=== PATIENT | male | born 1940 | race Caucasian/White ===

== ENCOUNTER 2018-04-06 14:04 | Outpatient (CLI) | payer MEDICARE, BC, SELFPAY ==
[2018-04-06] VITALS (12 sets, daily range): BP systolic 131–162; BP diastolic 49–89; PULSE 67–74; RESP 18; TEMP 36.1; O2SAT 98–100
--- NOTE | 2018-04-06 14:08 | DI.RAD.S_ITS ---
PROCEDURE: PAIN L INTERLAMINAR/CAUDAL INJ INDICATIONS: HERNIATED DISK FINDINGS: Fluoroscopic spot filming was performed to verify placement of spinal needles at the L3-4 level(s), as labeled on the films. Appropriate location(s) of the needle tip(s) was confirmed by injection of iodinated contrast. IMPRESSION: Image documentation of needle injection at the left L3-4 level. Dictated by: Rahul Rao M.D. on 04/06/2018 at 16:18 Approved by: Rahul Rao M.D. on 04/06/2018 at 16:19
--- NOTE | 2018-04-06 14:17 | P.PCN_ITS ---
Procedures Date/Time Date of procedure: 04/06/18 Time of procedure: 14:15 General Procedure description: POST OP DIAGNOSIS 1. HNP WITH RADICULAR FEATURES, 2. MULTILEVEL CENTRAL STENOSIS, PROCEDURES 1. FLUORSCOPICALLY GUIDED CONTRAST CONTROLLED INTERLAMINAR EPIDURAL STEROID INJECTION - L3/4 PHYSICIAN: DO DANIEL Ng Arnaldo is referred by Dr. Jaramillo for treatment of HNP Bilateral LE symptoms. FINDINGS Multilevel Central Spinal Stenosis with Nerve Root Compression DESCRIPTION OF PROCEDURE Fluoroscopically guided, contrast-controlled L3/4 translaminar epidural steroid injection. Following denial of allergy and review of potential side effects and complications, including, but not necessarily limited to, infection, allergic reaction, local tissue breakdown, temporary as well as permanent nerve injury, paralysis, stroke and possible , the patient indicated that the patient understood and agreed to proceed. An informed consent document was signed by the patient, witnessed by a nurse, and placed in the patient's chart. Additionally, other treatment options including modalities, medications, and physical therapy were reviewed with the patient. Per the patient request, IV conscious sedation was administered via 3mg of Versed to patient comfort. The patient's vital signs were monitored throughout the procedure by both the nurse and the physician without significant fluctuation. The patient remained conversant throughout the procedure. In the prone position, following sterile prep and drape of the lumbar region, the L3/4 translaminar space was identified fluoroscopically. The skin was anesthetized via a 25-gauge, 1.5-inch needle with 1% lidocaine solution. At this point, a 22-gauge short bevel spinal needle was atraumatically introduced and advanced under fluoroscopic guidance into the region of the L3/4 translaminar space. Depth was confirmed on lateral view. Radiological data, including multiple fluoroscopic views of the lumbar spine, reveal a spinal needle at the L3/4 translaminar space. Lateral views then show placement of the needle in the epidural space. Subsequent views show contrast material flowing superiorly and inferiorly in the epidural space. No vascular or intrathecal uptake is observed. At this point, using loss of resistance technique with saline and air, the epidural space was entered. This was confirmed following negative aspiration with injection of approximately 1.5 cc of Isovue 200, showing excellent epidural flow without vascular or intrathecal uptake. At this point, 1 cc of 1 % lidocaine solution combined with 3 cc or 20 mg of dexamethasone and 80mg Depo medrol was injected without incident. The patient was then transferred to the recovery area where they were observed for an appropriate period of time after the injection. The patient reported a VAS score of 6 prior to the procedure and a post-procedure VAS of 0. Total Fluoroscopy Time: 11.8 seconds Total Conscious Sedation Time: 24min POST OP INSTRUCTIONS The patient was provided a Pain Log to continue to record their response to the target-specific procedure prior to follow-up visit with their referring physician. Additionally, specific post-injection care instructions and a contact number to our office were provided if concerns arise regarding possible complications associated with the procedure are suspected. Sreedhar Cabrera DO
[2018-04-06] MEDS: MIDAZOLAM 5 MG/5 ML VIAL IV (14:40)
[2018-04-06] MEDS: IOPAMIDOL 15 ML VIAL 3 ML INJ (14:50)
[2018-04-06] MEDS: BUPIVACAINE 0.25% (PF) 30 ML VIAL INJ (14:50)
[2018-04-06] MEDS: methylPREDNISolone acetate 80 MG/ML VIAL INJ (14:50)
[2018-04-06] MEDS: DEXAMETHASONE 10 MG/ML VIAL 20 MG INJ (14:50)
== END 2018-04-06 16:03 ==
LOC: RAD 14:07
PROVIDERS: Visit Provider Physical Medicine & Rehabilitation
DX: M51.26 Other intervertebral disc displacement, lumbar region (principal); M48.062 Spinal stenosis, lumbar region with neurogenic claudication
CPT/HCPCS: 62323; 99152; J1040; J1100; J2250

== ENCOUNTER 2018-12-27 08:27 | Day surgery (SDC) | payer MEDICARE, BC, SELFPAY ==
[2018-12-21 14:56] VITALS: BMI 34.5
[2018-12-27] VITALS (12 sets, daily range): BP systolic 86–198; BP diastolic 23–87; PULSE 51–63; RESP 15–17; TEMP 36.2–36.4; O2SAT 88–100; BMI 34.5
--- NOTE | 2018-12-27 | DI.RAD.S_ITS ---
PROCEDURE: XR LUMBAR SPINE 1V INDICATIONS: LAMINECTOMY TECHNIQUE: Single views of the lumbar spine were acquired. COMPARISON: None. FINDINGS: Single spot fluoroscopic intraoperative view demonstrates a surgical probe in the posterior paraspinal soft tissues with the tip projecting at the level of the L3-L4 disc space. Dictated by: Phillip Egan M.D. on 12/27/2018 at 17:21 Approved by: Phillip Egan M.D. on 12/27/2018 at 17:23
[2018-12-27] MEDS: DEXTROSE 5%-0.9% NS 500 ML 21 ML IV (12:00)
--- NOTE | 2018-12-27 13:04 | SUR.PREOP ---
pt to opd this morning for surgery, had a chocolate at 0600 so surgery delayed , pt concerned about blood sugar, blood sugar at 0935 was 83, per anesthesia check every hour, pt to waiting room, blood sugar at 1030 was 81, at 1140 was 72, pt brought back to opd , iv started and d5 and 0.[address] de la cruz , blood sugar 65 at 1210,at 1310 blood sugar 87, pt feeling good, family at side, waiting for surgery
--- NOTE | 2018-12-27 14:20 | PM.PREOP ---
Pre-operative Note Interval Note History & Physical reviewed/Exam performed by Physician: Yes Changes to H&P: No
[2018-12-27] MEDS: CEFAZOLIN 2 GM/100 ML FROZ.PIGGY IV (15:01)
[2018-12-27] MEDS: LACTATED RINGERS 1,000 ML 42 ML IV (15:20)
--- NOTE | 2018-12-27 15:32 | SUR.OPER ---
Prone on spine table, head in foam head support, padded chest and pelvic supports, gel pad at knees, lower legs supported by pillows; nipples, genitalia and toes free of pressure, arms secured on foam padded arm boards at <90 degrees abduction. Tape over blanket at thigh secured to table.
[2018-12-27] MEDS: SODIUM CHLORIDE 0.9% 1,000 ML, GENTAMICIN 80 MG IRR (15:46)
[2018-12-27] MEDS: VANCOMYCIN 1,000 MG VIAL 1000 MG TOP (15:46)
[2018-12-27] MEDS: BUPIVACAINE 0.25% (PF) 8 ML, fentaNYL 100 MCG INJ (15:48)
--- NOTE | 2018-12-27 16:33 | PM.OP.1 ---
Operative Date/Time/Diagnoses Date of procedure: 12/27/18 Time of procedure: 16:33 Pre-op diagnosis: Lumbar stenosis with radiculopathy Lumbar disc herniation Post-op diagnosis: same Procedure & Clinicians Procedure: L3-4 laminectomy and diskectomy Use of microscope Placement of epidural catheter Same procedure as scheduled: Yes Indications: [age] year old male with intractable pain and weakness from stenosis and a disc herniation at L3-4. They had failed conservative management and requested operative intervention. Risks and benefits of surgery were discussed and appropriate consents were obtained. Surgeon: Brice Betts Varnish Thinner: Sheyla Brown Anesthesia Type: General Operative Notes Findings: None Closure Type: primary Specimen(s): none sent Estimated Blood Loss (mL): 10 Procedure in detail: Patient was brought to the operating room and intubated on the table. They were rolled over on the well-padded prone position on the Sam table. A time-out was performed. Preoperative antibiotics were given. The back was prepped and draped in standard sterile fashion. Using fluoroscopy for localization, a 3 cm incision was made in the midline. We used Bovie to dissect through the lumbodorsal fascia and then subperiosteally dissect the paraspinal muscles off the right side. A marker was placed and x-ray was taken to confirm positioning. We then brought in the microscope. A right-sided laminectomy was performed at L3-4. We carefully depressed the dura and reached across the midline to decompress the opposite side. The neural foramen were cleared out. We then carefully retracted the dura up and over the disc until the disc was exposed at L3-4. This was cleared with bipolar and then a scalpel used to perform an annulotomy. We used pituitary to perform a diskectomy until the posterior protrusion was removed and the disc was now flat. At the end, we could reach with the ball probe cephalad and caudally across the midline and to the foramen and everything was opened. The wound was irrigated. An epidural catheter was prepared with 8 mL of 0.25% Marcaine and 100 mcg of fentanyl. The dura was carefully depressed and the catheter was advanced 6 cm cephalad underneath remaining lamina without resistance. The fascia was then closed in layers with Maxon. The epidural catheter was injected without complications. Vancomycin powder was placed in the wound. The superficial was closed with Maxon and the skin was closed with ezequiel, all for his suture reactions in the past. Sterile dressing was placed. Patient was rolled over extubated brought to recovery room with no complications. Complications: none Condition: stable Disposition: PACU Plan for aftercare: Outpt. Limited BLT
[2018-12-27] MEDS: OXYCODONE/ACETAMINOPHEN 5/325 TABLET 1 TAB PO (17:34)
--- NOTE | 2018-12-27 17:44 | SUR.PHASEII ---
IV d/c'd at this time, pt. tolerated catheter tip intact.
--- NOTE | 2018-12-27 18:18 | SUR.PHASEII ---
1752; Pt was sitting on the edge of bed, pants, sock and shoes on, requested pt. to marketing proposal coordinator effort to pull up pants; pt. had difficulty straightening legs, sat back down on EOB, again pt. went to stand pt. did better job however pt. basically went blank eyes shut still in squat position, did not respond to this authors calling his name, this author called out for other RN to come to bedside, assisted pt. back down to supine position. Pt. then conversant, pt. covered with blanket, family at bedside. Will continue to monitor pt. until further awake.
--- NOTE | 2018-12-27 18:24 | SUR.PHASEII ---
1814, pt. feeling much better, vital signs improved, pt. requesting to get up and finish dressing. Family remained at bedside assisting pt. with upper clothes; no further issues of weakness, non responsive. Pt. assisted out of hospital via w/c with family. Family and pt. comfortable with leaving at this time.
== END 2018-12-27 18:28 | disposition home or self-care (01) ==
PROVIDERS: PCP Family Medicine; Visit Provider Orthopaedic Surgery
PROC: (CPT 63047; principal; 2018-12-27 10:15)
DX: M48.062 Spinal stenosis, lumbar region with neurogenic claudication (principal); M46.96 Unspecified inflammatory spondylopathy, lumbar region; M51.16 Intervertebral disc disorders with radiculopathy, lumbar region; E11.9 Type 2 diabetes mellitus without complications; I25.10 Atherosclerotic heart disease of native coronary artery without angina pectoris; Z79.4 Long term (current) use of insulin
CPT/HCPCS: 63047; 72020; 76000; J0690; J2405; J2704; J3010

== ENCOUNTER → 2021-08-14 13:24 | Outpatient (CLI) | payer MEDICARE, BC, SELFPAY ==
--- NOTE | 2021-08-14 | DI.MRI.S_ITS ---
PROCEDURE: MR LUMBAR SPINE WO CON INDICATIONS: Low back pain TECHNIQUE: Noncontrast sagittal T1 spin echo and T2 fast echo, sagittal STIR, axial T1 and T2 fast spin echo through the lumbar spine. In cases with scoliosis, additional coronal T2 fast spin echo may be performed. COMPARISON: [facility], CR, XR THORACOLUMBAR SPINE 2 VIEWS, 07/31/2021, 14:54. [facility], CR, XR LUMBAR SPINE WITH OBLIQUES, 09/08/2017, 10:04. [facility], MR, MR LUMBAR SPINE WITHOUT CONTRAST, 08/21/2017, 9:00. FINDINGS: Image quality: Excellent. Alignment and Curvature: There is normal bony alignment. Bone Marrow: Marrow is of normal overall signal. No acute vertebral body compression fractures. Spinal Cord: Conus medullaris terminates at the L1 level. Visualized cord demonstrates normal signal and size. Paraspinous Soft Tissues: No paravertebral masses. T12-L1: Loss of disc signal. No central stenosis. No neural foraminal narrowing. No neural compression L1-L2: Loss of disc signal. Mild, diffuse disc bulge. No central stenosis. Mild bilateral neural foraminal narrowing. No neural compression. L2-L3: Loss of disc signal. Mild, diffuse disc bulge. Mild bilateral facet hypertrophy. Mild narrowing of the central canal. Mild to moderate bilateral neural foraminal narrowing. No neural compression. Fissure noted in the posterior annulus. L3-L4: Loss of disc signal. Large right central disc extrusion. Moderate bilateral facet hypertrophy. Severe narrowing of the central canal with compression of the nerve roots of the cauda equina. Moderate bilateral neural foraminal narrowing. L4-L5: Loss of disc signal. Mild, diffuse disc bulge. Moderate bilateral facet hypertrophy. Mild ligamentum flavum hypertrophy. Moderate narrowing of the central canal. Mild to moderate bilateral neural foraminal narrowing. No neural compression. L5-S1: Loss of disc signal. Mild, diffuse disc bulge. [id number]-[id number] bilateral facet hypertrophy. No central stenosis. Mild bilateral neural foraminal narrowing. No neural compression. Fissure noted in the posterior annulus. IMPRESSION: 1. Large right central L3-L4 disc extrusion which causes severe central canal narrowing and compression of the traversing nerve roots of the cauda equina. 2. Multilevel degenerative disc disease. 3. Multilevel facet arthropathy. 4. Severe L3-L4 central canal narrowing predominantly related to disc extrusion. 5. No severe neural foraminal narrowing. 6. L2-L3 and L5-S1 disc annulus fissures. Dictated by: Jacqueline Gregory MD, PhD on 08/14/2021 at 16:22 Approved by: Jacqueline Gregory MD, PhD on 08/14/2021 at 16:29
== END ==
PROVIDERS: PCP Family Medicine; Referring Provider Physical Medicine & Rehabilitation; Visit Provider Physical Medicine & Rehabilitation
DX: M54.50 Low back pain, unspecified (principal); M48.061 Spinal stenosis, lumbar region without neurogenic claudication; M51.36 Other intervertebral disc degeneration, lumbar region; M47.896 Other spondylosis, lumbar region; M51.37 Other intervertebral disc degeneration, lumbosacral region; M48.07 Spinal stenosis, lumbosacral region
CPT/HCPCS: 72148

== ENCOUNTER → 2022-05-07 09:25 | Outpatient (CLI) | payer MEDICARE, BC, SELFPAY ==
[2022-05-07 10:16] LABS: Add Manual Diff / Slide Review NO; Basophils Absolute Auto 100 /uL (0-100); Basophils Percent Auto 0.9 % (0-2); Eosinophils Absolute Auto 600 /uL (0-450); Eosinophils Percent Auto 6.3 % (2-4); Hematocrit 43.4 % (41-53); Lymphocytes Absolute Auto 2400 /uL (1100-4500); Lymphocytes Percent Auto 24.6 % (25-40); Mean Corpuscular HGB Conc 34.5 % (30-36); Mean Corpuscular Hemoglobin 32.6 PG (26-34); Mean Corpuscular Volume 94.5 fL (80-100); Monocytes Absolute Auto 700 /uL (0-900); Monocytes Percent Auto 7.3 % (3-14); Neutrophils Absolute Auto 6100 /uL (1500-7000); Neutrophils Percent Auto 60.9 % (50-75); Platelet Count 151 X10^3/uL (150-400); Red Cell Distribution Width 13.8 % (11.6-14.8); White Blood Cell Count 9.9 X10^3/uL (4.5-11.0)
[2022-05-07 10:48] LABS: BUN Creatinine Ratio 14.5 (6-22); Blood Urea Nitrogen 22 mg/dL (9-20); Calcium 8.8 mg/dL (8.4-10.2); Carbon Dioxide 27 mmol/L (22-32); Chloride 102 mmol/L (98-107); Estimated Glomerular Filt Rate 46 mL/min (>60); Glucose 112 mg/dL (80-110); HEMOLYSIS < 15 (0-50); Potassium 4.4 mmol/L (3.4-5.1); Sodium 139 mmol/L (137-145)
== END ==
PROVIDERS: PCP Family Medicine; Referring Provider Orthopaedic Surgery Orthopaedic Surgery of the Spine; Visit Provider Orthopaedic Surgery Orthopaedic Surgery of the Spine
DX: Z01.812 Encounter for preprocedural laboratory examination (principal)
CPT/HCPCS: 36415; 80048; 85025

== ENCOUNTER → 2022-05-15 10:27 | Outpatient (CLI) | payer MEDICARE, BC, SELFPAY ==
[2022-05-15 11:04] LABS: COVID19 -Nasal RAPID Negative (Negative)
== END ==
PROVIDERS: PCP Family Medicine; Referring Provider Orthopaedic Surgery Orthopaedic Surgery of the Spine; Visit Provider Orthopaedic Surgery Orthopaedic Surgery of the Spine
DX: Z20.822 Contact with and (suspected) exposure to COVID-19 (principal)
CPT/HCPCS: 87635; C9803

== ENCOUNTER 2022-05-18 10:14 | Inpatient (IN) | payer MEDICARE, BC, SELFPAY ==
[2022-05-13 11:53] VITALS: BMI 34.4
[2022-05-18] VITALS (14 sets, daily range): BP systolic 115–202; BP diastolic 59–90; PULSE 55–81; RESP 16–24; TEMP 35.8–36.3; O2SAT 95–100; BMI 34.4
--- NOTE | 2022-05-18 | DI.RAD.S_ITS ---
PROCEDURE: XR LUMBAR SPINE 2-3V INDICATIONS: L3-4 TLIF TECHNIQUE: 2 views of the lumbar spine were acquired. COMPARISON: None. FINDINGS: Nondiagnostic intraoperative fluoroscopic views of the lumbar spine demonstrate changes of L3-L4 posterior fixation and laminectomy by means bilateral rods and pedicle screws with interbody device. Hardware appears to be in appropriate position with no evidence of periprosthetic fracture or other acute complicating hardware feature. IMPRESSION: Nondiagnostic intraoperative fluoroscopic views demonstrating L3-L4 TLIF. Dictated by: William Coon M.D. on 05/18/2022 at 16:35 Approved by: William Coon M.D. on 05/18/2022 at 16:36
[2022-05-18] MEDS: LACTATED RINGERS 1,000 ML 42 ML IV (12:05)
[2022-05-18] MEDS: DEXTROSE 5%-LACTATED RINGERS 1,000 ML 500 ML IV (12:35)
--- NOTE | 2022-05-18 12:52 | PM.PREOP ---
Pre-operative Note COVID-19 COVID-19 status: Negative Result date/Date tested (Pos, Neg/Pending): 05/17/22 Criteria for continued procedure: Expected advancement of disease process, Possibility delay results in more complex future surgery or treatment, Increased loss of function, Continuing or worsening of significant or severe pain, Deterioration of the patient's condition or overall health and Delay expected to result in less-positive ultimate med/surg outcome Interval Note History & Physical reviewed/Exam performed by Physician: Yes Changes to H&P: No
[2022-05-18] MEDS: CEFAZOLIN 2 GM/20 ML SYRINGE IV ×2 (13:17→21:18)
[2022-05-18] MEDS: BUPIVACAINE LIPOSOME 266 MG/20 ML VIAL INJ (13:51)
[2022-05-18] MEDS: BUPIVACAINE 0.5% (PF) 30 ML, EPINEPHrine 0.15 MG INJ (13:54)
[2022-05-18] MEDS: ACETAMINOPHEN IV 1,000 MG/100 ML VIAL 400 MG IV (14:59)
--- NOTE | 2022-05-18 15:23 | P.OP_ITS ---
Operative Date/Time/Diagnoses Date of procedure: 05/18/22 Time of procedure: 12:45 Pre-op diagnosis: 1. 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 L3-4 spinal stenosis with radiculopathy Post-op diagnosis: same Procedure & Clinicians Procedure: 1. L3-4 Postero-lateral and posterior interbody fusion 2. L3-4 interbody cage placement. 3. L3-4 decompressive laminectomy with bilateral facetecomies 4. L3-4 Posterior non-segmental instrumentation 5. [place] of bone marrow from iliac crest 6. Utilization of microsurgical technique and operating microscope Same procedure as scheduled: Yes Indications: Patient has been having chronic back pain and worsening lumbar radiculopathy. Patient failed multiple conservative management with worsening pain weakness and numbness in her lower extremity. Patient has been having difficulty performing activity of daily living. After discussing risks benefits of treatment options, patient elected proceed with surgery. Surgeon: Mundo Martin Paper Coating Machine Operator: Catalina Allan Click Yes if Unassisted: No Anesthesia Type: General Operative Notes Closure Type: primary Specimen(s): none sent Prosthetic devices, grafts, tissues, transplants, or devices: Globus revolve screws, Rise cage Estimated Blood Loss (mL): 50 Blood products transfused: none Procedure in detail: Patient was seen in the preoperative area. Risks and benefits of the surgery was discussed with the patient. Informed consent was obtained from the patient and placed in the chart. Surgical site was marked. Patient was taken to the operative room. General anesthesia was administered. Prophylactic antibiotic was given to the patient less than 30 min before the incision was made. Patient was placed into a prone position on the Sam table. Patient's back was then prepped and draped in the sterile fashion. Time-out was performed at this time. Using AP and lateral C-arm imaging the interval between L4-5 was identified and marked on patient's back. A 2 inch incision 2 in from midline was made on the right side first. The fascia was incised in line with skin incision. Globus MARS retractors was placed inside the incision and docked onto the L4 lamina. Using microsurgical technique and operating microscope, a L4 laminectomy and L4- 5 facetectomy was performed using a Kerrison rongeur. Patient was found to have significant amount of epidural scarring from the previous laminectomy surgery at the same level. The scar tissue was carefully resected using a Kerrison rongeur while protecting the dura and the nerve structures. The disc space at L4-5 was identified. And a total diskectomy was performed at L4-5 level. The endplates were decorticated using a rasp and shaver. The total diskectomy and decortication was performed at L4-5 level in order to to accomplish a L4-5 fusion. The local bone from the laminectomy and facetectomy was saved for local bone grafting. After the total diskectomy and decortication was completed, Trifecta bone graft material was combined with local bone that was harvested earlier. At this time, a separate skin is incision was made over the iliac crest. A Jamshidi needle was inserted into the iliac crest through a separate skin incision. 5 cc of bone marrow aspiration was obtained through the separate skin incision using a Jamshidi needle from the iliac crest. The bone marrow aspiration was combined with local bone and the Trifecta bone grafting material. The bone grafting material was placed into the L4-5 interbody space along with a expandable cage. The cage was expanded to its maximum height using the torque limiting screwdriver. At this time a mirror image incision was made on the left side. The fascia was incised in line with the skin incision. Globus MARS retractor was inserted and docked onto the L4-5 posterolateral gutter. Using the power drill, posterior- lateral decortication was performed at L4-5 level until bleeding cortical bone was identified. The remaining bone grafting material was placed into the L4-5 posterior lateral gutter he order to accomplish posterolateral fusion at the L4- 5 level. Using the double C-arm technique, pedicle screws were placed into the L4-5 pedicles bilaterally. This was done by placing the Jamshidi needle into the pedicles, then placing the guidewires over the Jamshidi needle, and finally placing the cannulated screws over the guidewires bilaterally. After the pedicle screws were placed, 2 titanium rods was locked into the heads of the pedicle screws using locking caps and torque limiting screwdriver. After all the hardware was placed, and confirmed with AP and lateral C-arm imaging, the wound was then irrigated with sterile normal saline and packed with Ray-Zuleika gauze for 3 min to accomplish hemostasis. After the gauze was removed the deep fascia was closed with #1 Vicryl suture. The subcutaneous layer was closed with 2-0 Vicryl. The skin was closed with skin ezequiel. Patient tolerated the procedure well. There were no complications. Complications: none Post-operative Plan for aftercare: Admit to inpatient hospital
[2022-05-18] MEDS: OXYCODONE IR 5 MG TABLET PO (16:29)
[2022-05-18] MEDS: SODIUM CHLORIDE 0.9% 1,000 ML 100 ML IV (19:03)
[2022-05-18] MEDS: lisinopriL 20 MG TABLET PO (21:18)
[2022-05-18] MEDS: DOCUSATE 100 MG CAPSULE PO (21:18)
[2022-05-18] MEDS: SENNOSIDES 8.6 MG TABLET 17.2 MG PO (21:19)
[2022-05-18] MEDS: GABAPENTIN 300 MG CAPSULE PO (21:19)
[2022-05-18] MEDS: OXYCODONE IR 5 MG TABLET 10 MG PO (21:20)
[2022-05-19] VITALS: BP 192/86; PULSE 80; RESP 18; TEMP 36.2; O2SAT 97
[2022-05-19 04:00] VITALS: BP 141/67; PULSE 63; RESP 17; TEMP 36.1; O2SAT 97
[2022-05-19] MEDS: OXYCODONE IR 5 MG TABLET 10 MG PO ×2 (05:06→08:09)
[2022-05-19] MEDS: SODIUM CHLORIDE 0.9% 1,000 ML 100 ML IV (05:06)
[2022-05-19] MEDS: CEFAZOLIN 2 GM/20 ML SYRINGE IV (05:07)
[2022-05-19 07:45] VITALS: BP 143/65; PULSE 63; RESP 16; TEMP 36.1; O2SAT 98
[2022-05-19] MEDS: METOPROLOL ER 50 MG TABLET PO (08:09)
[2022-05-19] MEDS: POTASSIUM CHLORIDE 10 MEQ TAB PO (08:10)
[2022-05-19] MEDS: DOCUSATE 100 MG CAPSULE PO (08:10)
[2022-05-19] MEDS: ATORVASTATIN 20 MG TABLET PO (08:10)
--- NOTE | 2022-05-19 09:05 | PT.IIE ---
Current Diagnoses Spinal stenosis, lumbar region with neurogenic claudication (05/18/22) Other intervertebral disc displacement, lumbar region (05/18/22) Surgery Performed Operation Date: 05/18/22 12:45 Actual Procedures p L3-4 TLIF - Mundo Martin MD Surgical History (Last Updated 05/13/22 @ 10:24 by Maite Dejesus, RN) H/O carotid endarterectomy (~2002) H/O removal of cyst (~2020) History of extraction of renal calculus (~2009) History of surgery Hx of laminectomy (12/27/18) S/P CABG x 5 (~1998) Status post epidural steroid injection Medical History (Last Updated 05/13/22 @ 10:26 by Maite Dejesus, RN) Behaviorally induced insufficient sleep syndrome (~08/2020) CAD (coronary artery disease) Colon polyps Constipation Herniated nucleus pulposus, L3-4 HTN (hypertension) Hyperlipidemia Hypokalemia Insomnia (Unknown) Leg pain, bilateral Low back pain Mallet finger (~2013) Obesity (BMI 30-39.9) (Unknown) Obstructive sleep apnea syndrome (~2007) Partial small bowel obstruction (12/07/15) Peripheral vascular disease Rheumatic fever Skin cancer Type 2 diabetes mellitus Physical Therapy Inpatient Evaluation/Re-Eval M1 PT/OT-IP Prior Functional Status Start: 05/19/22 12:05 Freq: NEEDED Status: Active Protocol: Document 05/19/22 09:05 AB (Rec: 05/19/22 12:22 AB [id number]) Medical Review Prior Functional Status Medical History Reviewed Yes Communication able to make needs known; needs increase time to answer questions Mobility and Gait pt stated that he is independent with all mobilities and ambulation without AD Social History Household Members spouse,children Living Arrangements House Number of Floors (Floors) Two Floors Number of Stairs To Enter/Railing? will stay on main level of the house 8+8 steps B rails to enter the house Home Environment High Toilet,Walk in Shower, Built-In Shower Seat Home Equipment Front Wheel Walker,Manual Wheelchair,Hand Held Shower, Grab Bars In Shower Additional Social History Comment pt stated that his sons will assist him at home pt has a walk in tub shower at home has a tripod cane M2 PT-IP Current Condition Start: 05/19/22 12:05 Freq: NEEDED Status: Active Protocol: Document 05/19/22 09:05 AB (Rec: 05/19/22 12:22 AB [id number]) Physical Therapy Current Condition Current Condition Evaluation Date 05/19/22 Treatment Diagnosis s/p L3-4 fusion; difficulty in walking Onset Date 05/18/22 M3 PT-IP Subjective Start: 05/19/22 12:05 Freq: NEEDED Status: Active Protocol: Document 05/19/22 09:05 AB (Rec: 05/19/22 12:22 AB [email or web address]) Subjective Physical Therapy Visit Type Type Initial Evaluation Visit Start Time 09:05 Visit Stop Time 10:23 Total Visit Minutes 78 Number of TRUCK SPOTTER Visits 0 Physical Therapy Visit Comments Patient Comments agreeable to do PT Therapy Pain Assessment Pain When Pain Assessed At Rest Pain Present Pain Present Pain Reported Location back Intensity 1 Scale Used 2/10 wtih mobility Pain Management Techniques Apply Cold,Modification of Treatment,Re-positioning, Timing of Activity with Medications M4 PT-IP Mobility and Gait Start: 05/19/22 12:05 Freq: NEEDED Status: Active Protocol: Document 05/19/22 09:05 AB (Rec: 05/19/22 12:22 AB [email or web address]) PT-Bed Mobility Assessment Rolling Type of Rolling Log Rolling Level of Assist Standby Assistance Supine to Sit Supine to Sit Standby Assistance Sit to Supine Sit to Supine Standby Assistance PT-Transfer Assessment Sit to and From Stand Sit to and from Stand Standby Assistance,Contact Guard Assistance,1 Person Assistance Equipment Transfer Assistive Device Gait Belt,Front Wheeled Walker Orthotic/Prosthetic Devices or Brace: No Transfers Transfer Destination Chair,Toilet Transfer Technique Stand Step Pivot Transfer Ability Level of Assist Standby Assistance,Contact Guard Assistance,1 Person Assistance,Use of Upper Extremities Comments Mobility Comments educated pt on back precautions. needs cues to remember. completed log roll bed mobility x 3 sets SBA and cues needed. able to sit on EOB SBA. pt is impulsive. completed sit to stand SBA to CGA. requested to use the toilet and ambulated to the toilet using FWW SBA to CGA. LOB to the R but able to recover. needs cues for safety. able to maintain standing using FWW for support SBA and ambulated out of the toilet using FWW SBA to the sink and able to maintain standing using fWW for support SBA while completing handwashing. pt sat on chair and rested. educated on safety and balance /ambulation techniques. ambulated out in the hallway using FWW SBA to CGA and cued for pacing and safety. completed up/down steps using B rails SBA. ambulated back to the room using fWW sBA with lateral LOB to the R x 2 with recovery. pt sat on chair. positioned on chair. educated on safety again. call light and table within reach. Gait Assessment Gait Gait Assistance Required: Standby Assistance,Contact Guard Assist Distance (Feet) 200 Able to Maintain Weight Bearing Status Yes During Gait Assistive Devices Assistive Device Gait Belt,Front Wheeled Walker Orthotic/Prosthetic Devices or Brace: No Gait Deviations General Gait Pattern Decreased Stride Length, Decreased Feet Clearance, Lateral Trunk Lean Factors Limiting Gait Function Factors Limiting Gait Function Decreased Activity Tolerance, Decreased Strength,Difficulty Following Directions,Limited Range of Motion,Pain,Poor Balance,Poor Safety Awareness Stair Climbing Assessment Evaluation Level of Assist On Stairs Standby Assistance Devices Stair Climbing Assistive Devices Left Railing,Right Railing Technique/Endurance Stair Climbing Direction Ascend and Descend Stair Climbing Technique Step Over Step Number of Steps Climbed 3 Query Text: Stair Climbing Set # Repetitions (reps) 3 PT-Balance Assessment Sitting Balance and Reactions Static Sitting Balance Ability Normal Dynamic Sitting Balance Ability Normal Standing Balance and Reactions Static Standing Balance Ability Fair Dynamic Standing Balance Ability Fair Device Used FWW M5 PT-IP Objective Assessments Start: 05/19/22 12:05 Freq: NEEDED Status: Active Protocol: Document 05/19/22 09:05 AB (Rec: 05/19/22 12:22 [email or web address]) Orientation Orientation/Cognition Level of Alertness Alert Orientation Name,Place,Situation Safety Awareness Decreased Safety Awareness Memory Description Short Term Impaired Gross Range of Motion Lower Extremity ROM Assessment Within Functional Limits Strength Lower Extremity Strength Hip 4-/5 Knee 4-/5 Sensation Assessment Sensation Gross Sensation WNL Muscle Tone Muscle Tone WNL Yes M6 PT-IP Treatment Start: 05/19/22 12:05 Freq: NEEDED Status: Active Protocol: Document 05/19/22 09:05 AB (Rec: 05/19/22 12:22 [email or web address]) Physical Therapy Treatment Education Education Provided Precautions,Weight Bearing Status,Post-Op Packet,Safety M7 PT-IP Assessment and Plan Start: 05/19/22 12:05 Freq: NEEDED Status: Active Protocol: Document 05/19/22 09:05 AB (Rec: 05/19/22 12:22 AB [id number]) PT Summary Assessment and Plan Potential Rehabilitation Potential Good Status of Condition at Evaluation Stable Summary Impairments Pain,ROM,Strength,Balance, Coordination,Sensation,Tone, Cognition,Bed Mobility, Transfers,Gait,Activity Tolerance Assessment Summary pt requiring SBA to CGA with mobilty using FWW. Pt is impulsive with decrease safety awareness and requires cues for steadiness and safety. pt plans to go home with his sons to assist him. caregiver training will be conducted in the afternoon prior to d/c home. Goals Bed Mobility Goal Independent Transfer Goal Independent,Front Wheeled Walker Gait Goal Independent,Front Wheel Walker Gait Distance 250 Other Goals up/down 16 steps B rails mod I Days to Meet Goals 5 Frequency of Treatment Frequency Of Treatment Twice a Day Treatment Plan Physical Therapy Treatment Plan Bed Mobility Training,Transfer Training,Gait Training, Therapeutic Exercise,Balance Retraining,Post Op Education, Discharge Planning,Hot or Cold Pack,Neuromuscular Re-ed, Coordination Retraining,Manual Therapy Precautions Lumbar Precautions Log Roll,No Twisting,Limit Bending,Lifting Restriction of 10 lbs,Gait Belt above Incisional Area Recommendations To Nursing Amount of Assist Needed 1 Person Assist Discharge Recommendations PT Discharge Recommendations Home with Assistance Transportation Needs at Discharge Private Vehicle
--- NOTE | 2022-05-19 10:55 | CM.DANOTE ---
DCP: Case received, EMR reviewed and met with patient. Introduced self and role. Was able to obtain information regarding patient's baseline activity level at home, as well as his current living situation. DCP assessment completed with information currently available. Patient is an 81 year old male who admitted yesterday morning to the care of the orthopedic team. PCP: Dr. Jaramillo. Payer: confirmed: Medicare/BCBS Out of [facility]. Patient came to the hospital via private vehicle for a surgical procedure. Patient had L3-4 Laminectomy TLIF. Patient has history of spinal stenosis. Met with patient in his room. He is alert and oriented, and resides in [place]. His spouse, Breanna, is currently at [facility]. At his baseline, he indicated, he is independent. 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 Confirmed that his son, Nico, will be staying with him temporarily, he does not live locally. P: Patient is to be discharging home today after working with P.T. Antoinette Quinonez RN/Sound Technician Supervisor Discharge Planning/Care Management Advanced directive, confirm from FAMILY Start: 05/18/22 17:17 Freq: Q24H Status: Active Protocol: Document 05/18/22 17:17 ALEXA (Rec: 05/18/22 21:52 [id number]) Advance Directive, confirm on record Time 19:30 Person contacted pt Copy received No Time 21:30 Person contacted pt Copy received No Advanced directive available on record No CM Discharge Assessment Start: 05/19/22 10:27 Freq: Status: Active Protocol: Document 05/19/22 10:27 (Rec: 05/19/22 10:31 [id number]) Discharge Planning Assessment Assigned Event Av Operator Antoinette Quinonez RN/Sound Technician Supervisor Advance Directives? Yes Advance Directives on File No History Provided By Patient,Medical Record Prior Living Arrangements House Household Members spouse Type of transporation used prior to Drives own vehicle admit Independent with ADL's Yes Is patient alert and oriented? Yes Caregiver for Another No: Patient's spouse is at [facility] in [place] Barriers to Discharge No Comment Patient indicated that son, Jesús, is staying with him Discharge Plan Home Transportation Arrangement Son Referrals Initiated Other Additional Comment Will see how patient does with P.T. Whiteboard Updated in Patient Room with Yes name and ext. # of Event Av Operator Review Status In Process Next Review Type Continued Stay Review Pre-Anesthesia Assessment Start: 05/13/22 09:32 Freq: Status: Complete Protocol: Document 05/13/22 11:53 [facility] (Rec: 05/13/22 12:03 [facility] [id number]) Pre-Anesthesia Assessment Patient Information Reviewed Via Phone Assessment Assessment Completed With Patient Comment Labs @ [facility] 05/07, COVID screen- needs to schedule Primary Care Provider Mk Jaramillo Medical Clearance Received Yes Seen Specialist in Last 12 Months Yes Specialist Seen Orthopedist Comment PCP visit and clearance scanned to record Primary Language Icelandic Retail Parts Professional Required No Height 5 ft 11 in Weight 247 lb Body Mass Index (BMI) 34.4 Hearing Ability Normal Visual Assist Glasses Dentition Type Teeth, Natural Present Barriers to Learning None Comment Pt denies any issues, but gives delayed, vague answers at times, laughs Hx Anesthesia Reactions No: MALCOLM-CPAP recalled, has not had in over a year Hx Family Anesthesia Reaction No Hx Malignant Hyperthermia No Hx Blood Transfusions Yes: CABG Hx Blood Transfusion Reaction No Anesthesia Review Requested No Lead Embedded Software Engineer No alcohol intake current alcohol intake frequency a few times a month Smoking Status Former smoker how long ago did patient quit smoking Quit age 23 Substance Use Type does not use Pain Present Pain Reported Musculoskeletal Symptoms Abnormal Gait,Back Pain, Difficulty Walking,Muscle Weakness,Radiating Pain into Limb History of Falling (Recent or History of Yes ) Patient is completely paralyzed or No completely immobile Mental Status Oriented to own ability Comment Advised pt to obtain a cane/ FWW Is patient on oxygen? No Does patient have HANSEN/SOB No Hx Sleep Apnea Yes: Equipment recalled, not used in over a year CPAP/BIPAP use prescribed not used Currently Taking a Beta Kimberlee Yes: Metoprolol, Bystolic Can You Climb a Flight of Stairs Without Yes SOB Hx Chest Pain No Hx SOB No Hx Syncope or Dizziness No Anti-Coagulant Therapy Yes: ASA 81mg-advised pt to check w/PCP if needed to hold Has a Drapery Counselor Has not followed with in years Cardiac Testing No Hx Pacemaker/ICD No Pacemaker Rep Required? No Cardiac Clearance Received Not Applicable Diet Type At Home Regular dysphagia No Gastrointestinal Symptoms Constipation Bladder Pattern Incontinent Urinary Catheter Present No Hx Urinary Self Catheterization No Diabetes Yes HgbA1C 7.0 Date 04/07/22 Hx Drug Resistant Organism No Presence of External or Internal Medical Yes: CABG wires Devices Have you had any close contact with No someone diagnosed with COVID-19? Received a COVID vaccine? Yes Received all doses? Yes Marital Status - currently residing in [facility]isted living in [place] Lives With spouse Patient Discharge Plan Description Return Home Comment Pt not advised on length of stay per surgeon's office Feels Safe in Current Environment Yes Been Physically Hurt or Threatened By a No Person in Current Environment Do you have thoughts of harming yourself None or others? Are you currently considering suicide? No Do you have a plan to hurt yourself or No Plan others? Do You Have Any Spiritual Beliefs That No May Affect Your HC Choices? Do You Have Any Cultural Practices That No May Affect Your HC Choices? Comment Sabianism Who Can We Speak to About Patient's Care Family, friends Identifying Code for Release of Patient Declines to issue Information Health Care Proxy/Next of Kin [place] (son) Health Care Proxy - will be staying with pt Emergency Contact Name Breanna () Emergency Contact Advance Directives? Yes Advance Directives on File No Power of Solar Project Engineer No PAC Instructions Diabetes instructions,Durable medical equipment,Medications to take/avoid,Nasal antibiotic ,No ETOH/petroleum product on skin DOS,NPO,Post-op transportation,Pre-surgical wash,Sensory aids,Sturdy shoes /comfortable clothes,Do not bring valuables and remove jewelry
--- NOTE | 2022-05-19 11:13 | OT.IP.EVAL ---
Current Diagnoses Spinal stenosis, lumbar region with neurogenic claudication (05/18/22) Other intervertebral disc displacement, lumbar region (05/18/22) Surgery Performed Operation Date: 05/18/22 12:45 Actual Procedures p L3-4 TLIF - Mundo Martin MD Past Medical History (Last Updated 05/13/22 @ 10:26 by Maite Dejesus, RN) Behaviorally induced insufficient sleep syndrome (~08/2020) CAD (coronary artery disease) Colon polyps Constipation Herniated nucleus pulposus, L3-4 HTN (hypertension) Hyperlipidemia Hypokalemia Insomnia (Unknown) Leg pain, bilateral Low back pain Mallet finger (~2013) Obesity (BMI 30-39.9) (Unknown) Obstructive sleep apnea syndrome (~2007) Partial small bowel obstruction (12/07/15) Peripheral vascular disease Rheumatic fever Skin cancer Type 2 diabetes mellitus Surgical History (Last Updated 05/13/22 @ 10:24 by Maite Dejesus RN) H/O carotid endarterectomy (~2002) H/O removal of cyst (~2020) History of extraction of renal calculus (~2009) History of surgery Hx of laminectomy (12/27/18) S/P CABG x 5 (~1998) Status post epidural steroid injection Occupational Therapy Inpatient Evaluation/Re-Eval M1 PT/OT-IP Prior Functional Status Start: 05/19/22 12:05 Freq: NEEDED Status: Active Protocol: Document 05/19/22 10:24 [facility] (Rec: 05/19/22 13:06 [facility] [id number]) Medical Review Prior Functional Status Medical History Reviewed Yes Communication able to make needs known; needs increase time to answer questions Mobility and Gait pt stated that he is independent with all mobilities and ambulation without AD Activities of Daily Living and IADL's Pt states due to his back pain having more difficulty doing his ADl and IADL needs. Social History Household Members spouse Living Arrangements House Number of Floors (Floors) Two Floors Number of Stairs To Enter/Railing? will stay on main level of the house 8+8 steps B rails to enter the house Home Environment High Toilet,Walk in Shower, Built-In Shower Seat Home Equipment Front Wheel Walker,Manual Wheelchair,Hand Held Shower, Grab Bars In Shower Additional Social History Comment pt stated that his sons will assist him at home pt has a walk in tub shower at home has a tripod cane Pt states will be going upstairs for his walk in shower. M2 OT-IP Current Condition Start: 05/19/22 12:27 Freq: Status: Active Protocol: Document 05/19/22 10:24 [facility] (Rec: 05/19/22 13:06 [facility] [id number]) Occupational Therapy Current Condition Current Condition Evaluation Date 05/19/22 Treatment Diagnosis S/p L3-4 TLIF Diagnosis Onset Date 05/18/22 Post Operative Precautions Lumbar Precautions Log Roll,No Twisting,Limit Bending,Lifting Restriction of 10 lbs,Gait Belt above Incisional Area M3 OT- IP Subjective and Pain Start: 05/19/22 12:27 Freq: Status: Active Protocol: Document 05/19/22 10:24 [facility] (Rec: 05/19/22 13:06 [facility] [id number]) OT- Subjective Occupational Therapy Visit Type Type Initial Evaluation Visit Start Time 10:24 Visit Stop Time 11:13 Total Visit Minutes 49 Occupational Therapy Visit Comments Patient Comments Pt agreed to get up for OT eval and not wanting to shower at this time. Patient/Caregiver Goals To go home. OT Pain Assessment Pain When Pain Assessed During Mobility Pain Present Pain Present Pain Reported Location back Intensity 2 Scale Used Numeric (0 - 10) M4 OT- IP ADL's Start: 05/19/22 12:27 Freq: Status: Active Protocol: Document 05/19/22 10:24 [facility] (Rec: 05/19/22 13:06 [facility] [id number]) OT [id number] Comments OT Self-Feeding Comments Not at meal time. OT ADL-Grooming General Evaluation Grooming Ability Standby Assistance Comments OT Grooming Comments WHile standing at the sink with FWW. OT ADL-Oral Care General Eval Oral Care Ability Standby Assistance Comments Oral Care Comments Vc to hinge at his hips or spit into a cup to best follow his back precautions. OT ADL-Dressing General Eval Lower Body Dressing Ability Standby Assistance Comments OT Dressing Comments Pt states able to comfortably cross his legs over to do ADl needs. Able to show pt sock aid and business management manager but states will just do things on his own . OT ADL-Toileting Comments OT Toileting Comments Pt not having to go, able to educated that standing to wipe may be easier for him in order to follow his back precautions OT ADL-Bathing Comments OT Bathing Comments Pt states to shower at home. Educated best to cover his back dressing with plastic and have his son assist him as well. M5 OT- IP IADL's Start: 05/19/22 12:27 Freq: Status: Active Protocol: Document 05/19/22 10:24 [facility] (Rec: 05/19/22 13:06 [facility] [id number]) OT-Instrumental Activities of Daily Living Home Safety Awareness Awareness of Need for Assistance at Home Good Awareness Ability to Problem Solve Emergency Able to Problem Solve Situations Home Safety Comments Pt appears at times a bit forgetful and that his son will be home to assist home. M6 OT- IP Functional Cognition Start: 05/19/22 12:27 Freq: Status: Active Protocol: Document 05/19/22 10:24 [facility] (Rec: 05/19/22 13:06 [facility] [id number]) Cognitive Factors Limiting Selfcare Function Cognitive Ability Level of Alertness Alert Patient Orientation Name,Place,Situation Attention Span Ability Capable of Focused Attention, Capable of Sustained Attention Ability to Follow Commands Able to Follow One Step Commands with Increased Time, Able to Follow One Step Commands with Repetition Safety Awareness Decreased Recall of Precautions,Decreased Ability to Apply Precautions, Underestimates Need for Assistance Cognitive Comments Cognitive Assessment Comments Pt needing reminders and cues for his back precautions for bed mobility and ADl needs. Pt can be a little impulsive at times. OT- Vision and Hearing OT- Hearing Assessment OT- Hearing Assessment WFL OT- Vision Assessment Visual Acuity Glasses For Reading M7 OT- IP Mobility and Balance Start: 05/19/22 12:27 Freq: Status: Active Protocol: Document 05/19/22 10:24 [facility] (Rec: 05/19/22 13:06 [facility] [id number]) OT- Bed Mobility Assessment Rolling Type of Rolling Roll to Right Level of Assistance Standby Assistance Supine to Sit Supine to Sit Assist Standby Assistance Sit to Supine Sit to Supine Assist Standby Assistance OT-Transfer Assessment Sit to and From Stand Sit to and from Stand Standby Assistance Transfers Transfer Ability Standby Assistance Technique Transfer Destination Bed,Chair Transfer Technique Stand Step Pivot Devices Transfer Assistive Devices Gait Belt,Front Wheeled Walker Comments Mobility Comments Pt needing cues for log rolling to be sure to keep his left hand forwards while initially getting down to side lying. Pt needing vc to push up from the bed . OT- Balance Assessment Sitting Balance and Reactions Static Sitting Balance Ability Normal Dynamic Sitting Balance Ability Good Standing Balance and Reactions Static Standing Balance Ability Good Dynamic Standing Balance Ability Fair M8 OT- IP Objective Assessments Start: 05/19/22 12:27 Freq: Status: Active Protocol: Document 05/19/22 10:24 [facility] (Rec: 05/19/22 13:06 [facility] [id number]) OT-Muscle Tone Assessment Muscle Tone WNL Yes M9 OT- IP Assessment and Plan Start: 05/19/22 12:27 Freq: Status: Active Protocol: Document 05/19/22 10:24 [facility] (Rec: 05/19/22 13:06 [facility] [id number]) OT Summary Assessment and Plan Potential Rehabilitation Potential Good Analytic Complexity at Evaluation Low Summary OT Impairments Pain,Balance,Functional Cognition,Functional Mobility, Dressing,Toileting,Bathing, Toilet Transfers,Shower Transfers Progress Towards Goals Progressing Toward Goals Assessment Summary Pt low complexity and main barriers are pain , a bit forgetful of his back precautions and at times a bit impulsive. Pt to go home with his son when medically stable. At this time pt not wanting to get any LB dressing equipment even though it would increase his ease and follow through of his back precautions. Goals Grooming Goal Independent Dressing Goal Independent Toileting Goal Independent Bathing Goal Independent Toilet Transfer Goal Independent Shower Transfer Goal Independent Patient/Caregiver Education Goal Demonstrate Post-Op Precautions Days to Meet Goals 5 Frequency of Treatment Frequency Of Treatment Once a Day Treatment Plan OT Treatment Plan ADL Training,Functional Cognition Training,Functional Mobility,Patient/Family Education,Discharge Planning Discharge Recommendations OT Discharge Recommendations Home with 31/05 Assist Available Transportation Needs at Discharge Private Vehicle
[2022-05-19] MEDS: INSULIN LISPRO 100 UNIT/ML 3ML VIAL SUBCUT (11:55)
[2022-05-19 12:04] VITALS: BP 140/65; PULSE 62; RESP 17; TEMP 36.3; O2SAT 100
--- NOTE | 2022-05-19 12:35 | PT.IPTN ---
Current Diagnoses Spinal stenosis, lumbar region with neurogenic claudication (05/18/22) Other intervertebral disc displacement, lumbar region (05/18/22) Surgery Performed Operation Date: 05/18/22 12:45 Actual Procedures p L3-4 TLIF - Mundo Martin MD Physical Therapy Treatment Note M2 PT-IP Current Condition Start: 05/19/22 12:05 Freq: NEEDED Status: Discharge Protocol: Document 05/19/22 09:05 AB (Rec: 05/19/22 12:22 AB [email or web address]) Physical Therapy Current Condition Current Condition Evaluation Date 05/19/22 Treatment Diagnosis s/p L3-4 fusion; difficulty in walking Onset Date 05/18/22 M3 PT-IP Subjective Start: 05/19/22 12:05 Freq: NEEDED Status: Discharge Protocol: Document 05/19/22 12:35 AB (Rec: 05/19/22 14:00 AB [email or web address]) Subjective Physical Therapy Visit Type Type Treatment Note Visit Start Time 12:35 Visit Stop Time 13:00 Total Visit Minutes 25 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 0 Physical Therapy Visit Comments Patient Comments agreeable to do PT; son in room M4 PT-IP Mobility and Gait Start: 05/19/22 12:05 Freq: NEEDED Status: Discharge Protocol: Document 05/19/22 12:35 AB (Rec: 05/19/22 14:00 AB [email or web address]) PT-Bed Mobility Assessment Rolling Type of Rolling Log Rolling Level of Assist Standby Assistance Supine to Sit Supine to Sit Standby Assistance Sit to Supine Sit to Supine Standby Assistance PT-Transfer Assessment Sit to and From Stand Sit to and from Stand Standby Assistance,Use of Upper Extremities Equipment Transfer Assistive Device Gait Belt,Front Wheeled Walker Orthotic/Prosthetic Devices or Brace: No Transfers Transfer Destination Bed,Chair Transfer Technique ambulated Transfer Ability Level of Assist Standby Assistance,1 Person Assistance,Use of Upper Extremities Comments Mobility Comments son in room and pt using the toilet. found FWW no with pt. son stated that pt walked without FWW but stated that he told the pt to use the FWW but pt did not. pt ambulated out of the toilet without AD SBA to CGA tot he sink. unsteady antalgic gait. able to stand by the sink SBA while completing handwashing. pt ambulated to the chair without AD CGA. informed son regarding pt's back precautions, log roll bed mobility and safety. pt continues not to remember his precautions. son seems to not able to direct pt and pt directs his own care. pt completed sit to stand SBA and ambulated using FWW as recommeded by PT and to EOB SBA. pt demonstrated log roll bed mobility SBA. educated son on pt bed mobility techniques and positioning. pt completed sit to stand sBA and ambulated back to the chair using FWW SBA. son is asking a FWW for pt. Son stated that he has a FWW that he bought from a [employer] sale but pt does not have one and pt's insurance should cover one for pt. talked to pt as pt earlier this morning stated that he has one. Son stated that pt might think he has one but he doesn't. informed pt and son regarding purchasing and FWW through his insurance. also informed them that pt might just use a FWW for a short term and gave pt options. Pt stated that he will just borrow his son's FWW and son stated that will not be a problem. Son then stated that there should be a HHPT and homehealth nurse that should come in for pt. Informed son that pt is only requiring SBA and will not need HHPT at this time and might need outpt PT later on but not until ortho MD cleared pt. Son then told pt that he can just sit and not do anything. Explained to son that it is a matter of choice. informed son that even with HHPT coming to pt's house to see him (if appropriate), pt should have initiative to move around and not just move when PT is around. also informed that, that is why education and caregiver training is being conducted right now so that family should encourage pt to move as much as possible . also informed son that HHPT usually is for pt that is deemed home bound but pt is moving enough and only needing SBA at this time. Left pt with son and informed nurse. Gait Assessment Gait Gait Assistance Required: Standby Assistance Distance (Feet) 12 Able to Maintain Weight Bearing Status Yes During Gait Assistive Devices Assistive Device Gait Belt,Front Wheeled Walker Orthotic/Prosthetic Devices or Brace: No Gait Deviations General Gait Pattern Antalgic,Decreased Stride Length,Decreased Feet Clearance Factors Limiting Gait Function Factors Limiting Gait Function Decreased Activity Tolerance, Limited Range of Motion,Pain, Poor Balance,Poor Safety Awareness Stair Climbing Assessment Comments Stair Climbing Comments pt does not want to do stair climbing training again this afternoon; only needed SBA this morning. M5 PT-IP Objective Assessments Start: 05/19/22 12:05 Freq: NEEDED Status: Discharge Protocol: Document 05/19/22 09:05 AB (Rec: 05/19/22 12:22 AB [email or web address]) Orientation Orientation/Cognition Level of Alertness Alert Orientation Name,Place,Situation Safety Awareness Decreased Safety Awareness Memory Description Short Term Impaired Gross Range of Motion Lower Extremity ROM Assessment Within Functional Limits Strength Lower Extremity Strength Hip 4-/5 Knee 4-/5 Sensation Assessment Sensation Gross Sensation WNL Muscle Tone Muscle Tone WNL Yes M6 PT-IP Treatment Start: 05/19/22 12:05 Freq: NEEDED Status: Discharge Protocol: Document 05/19/22 12:35 AB (Rec: 05/19/22 14:00 AB [id number]) Physical Therapy Treatment Education Education Provided Precautions,Safety M7 PT-IP Assessment and Plan Start: 05/19/22 12:05 Freq: NEEDED Status: Discharge Protocol: Document 05/19/22 12:35 AB (Rec: 05/19/22 14:00 AB [email or web address]) PT Summary Assessment and Plan Potential Rehabilitation Potential Fair Summary Impairments Pain,ROM,Strength,Balance, Coordination,Sensation,Tone, Cognition,Bed Mobility, Transfers,Gait,Activity Tolerance Progress Towards Goals Progressing Toward Goals Assessment Summary pt requiring SBA with mobility . caregiver training conducted and educated pt's son on pt's safety and precautions. pt plans to go home and son to assist as needed. Goals Bed Mobility Goal Independent Transfer Goal Independent,Front Wheeled Walker Gait Goal Independent,Front Wheel Walker Gait Distance 250 Other Goals up/down 16 steps B rails mod I Days to Meet Goals 5 Frequency of Treatment Frequency Of Treatment Twice a Day Treatment Plan Physical Therapy Treatment Plan Bed Mobility Training,Transfer Training,Gait Training, Therapeutic Exercise,Balance Retraining,Post Op Education, Discharge Planning,Hot or Cold Pack,Neuromuscular Re-ed, Coordination Retraining,Manual Therapy Precautions Lumbar Precautions Log Roll,No Twisting,Limit Bending,Lifting Restriction of 10 lbs,Gait Belt above Incisional Area Recommendations To Nursing Amount of Assist Needed 1 Person Assist Discharge Recommendations PT Discharge Recommendations Home with Assistance Transportation Needs at Discharge Private Vehicle
--- NOTE | 2022-05-19 12:36 | PC.NURSE ---
Pt is dressed and ready for discharge home with son. PT is performing caregiver training with son [place]. IV removed. Went over d/c instructions with Pt and Son-discussed d/c meds, time of last dose, reviewed stroke education, reminded Pt to follow back precautions, encouraged Pt to drink plenty of fluids to prevent constipation or dehydration, no driving while on narcotics, s/s of infection and when to call MD, keep dsg clean and dry and follow up with Dr. Martin as scheduled. Pt and son denied further questions and Pt is ready to be taken out via w/c when PT has completed training.
== END 2022-05-19 13:12 | disposition home or self-care (01) | DRG 455 ==
LOC: OR 10:14 → AC 10:15
PROVIDERS: Admitting Provider Orthopaedic Surgery Orthopaedic Surgery of the Spine; PCP Family Medicine; Referring Provider Orthopaedic Surgery Orthopaedic Surgery of the Spine; Visit Provider Orthopaedic Surgery Orthopaedic Surgery of the Spine
PROC: 0SG00AJ Fusion of Lumbar Vertebral Joint with Interbody Fusion Device, Posterior Approach, Anterior Column, Open Approach (ICD-10-PCS; principal; 2022-05-18 12:45)
DX: M48.062 Spinal stenosis, lumbar region with neurogenic claudication (principal); M51.26 Other intervertebral disc displacement, lumbar region; F17.210 Nicotine dependence, cigarettes, uncomplicated; M54.16 Radiculopathy, lumbar region; M96.1 Postlaminectomy syndrome, not elsewhere classified; I10 Essential (primary) hypertension; E78.5 Hyperlipidemia, unspecified; E11.9 Type 2 diabetes mellitus without complications; Z79.4 Long term (current) use of insulin; Z79.899 Other long term (current) drug therapy; Z20.822 Contact with and (suspected) exposure to COVID-19
CPT/HCPCS: 72100; 76000; 82962; 87635; 97116; 97161; 97165; 97530; 97535; C9803; C1713; C9290; J0131; J0171; J0690; J1100; J1170; J1815; J2405; J2704; J3010; J7121